=== PATIENT | female | born 1970 | race Caucasian/White ===

== ENCOUNTER 2017-03-26 14:04 | Emergency (ER) | payer SELFPAY ==
--- NOTE | 2017-03-26 15:49 | Emergency Department Report ---
Chief Complaint: Vaginal Bleeding Stated Complaint: MENSTRUAL FOR 3 WEEKS Time Seen by Provider: 03/26/17 15:45 - HPI History of Present Illness: PT c/o vaginal bleeding x 3 weeks PT reports having headache today - ROS Review of Systems: - n/v - lightheadedness - dizziness - Exam Vital Signs: Vital Signs 03/26/17 15:35 Temperature 98.5 F Pulse Rate 96 H Respiratory 18 Rate Blood Pressure 190/101 O2 Sat by Pulse 100 Oximetry Physical Exam: PT looks well, non toxic gcs 15 MSE screening note: Focused history and physical exam performed. Due to findings the following was ordered: labs ED Disposition for MSE Condition: Stable Referrals: PRIMARY CARE, [Primary Care Provider] - 3-5 Days
[2017-03-26 16:22] LABS: Basophils % (Auto) 0.7 % (0.0-1.8); Eosinophils % (Auto) 1.8 % (0.0-4.3); Hemoglobin 8.8 gm/dl (10.1-14.3); Mean Corpuscular HGB Conc 31 % (30-34); Mean Corpuscular Volume 78 fl (79-97); Platelet Count 539 K/mm3 (140-440); Red Blood Count 3.59 M/mm3 (3.65-5.03); White Blood Count 10.8 K/mm3 (4.5-11.0)
[2017-03-26 16:27] LABS: Mean Corpuscular Hemoglobin 24 pg (28-32); Red Cell Distribution Width 22.1 % (13.2-15.2)
[2017-03-26 16:32] LABS: Partial Thromboplastin Time 31.4 Sec. (24.2-36.6)
[2017-03-26 16:37] LABS: Alanine Aminotransferase 18 units/L (7-56); Albumin/Globulin Ratio 1.2 %; Alkaline Phosphatase 60 units/L (35-129); Anion Gap 18 mmol/L; BUN/Creatinine Ratio 9; Blood Urea Nitrogen 6 mg/dL (7-17); Calcium 8.3 mg/dL (8.4-10.2); Carbon Dioxide 21 mmol/L (22-30); Chloride 104.8 mmol/L (98-107); Glucose 88 mg/dL (65-100); Potassium 3.7 mmol/L (3.6-5.0); Sodium 140 mmol/L (137-145); Total Protein 7.3 g/dL (6.3-8.2)
--- NOTE | 2017-03-27 05:38 | Ultrasound Report ---
FINAL REPORT PROCEDURE: US TRANSVAGINAL TECHNIQUE: Real-time transvaginal sonography in multiple planes of the pelvis was performed with image documentation. This examination was performed without Doppler. Vascular abnormalities, including ovarian torsion, will not be detectable without Doppler evaluation. CPT 68473 HISTORY: vag bleeding x 3 weeks COMPARISON: No prior studies are available for comparison. FINDINGS: UTERUS Size: 12.9 x 7.8 x 8.6 cm. Endometrial thickness: 7.3 mm. Orientation: anteverted. Cervix: Normal. Fibroids/masses: There are 3 discrete uterine mass is suggesting fibroids. There is an intramural fibroid on the right measuring 5.3 centimeters. There is an intramural fibroid on the left measuring 4.5 centimeters. There is a submucosal fibroid in the lower uterine segment measuring 3.4 centimeters.. RIGHT Ovary: 4.9 x 3.3 x 4.5 cm. Appearance: There is a 4.3 centimeter cyst.. LEFT Ovary: 3.1 x 1.8 x 1.7 cm. Appearance: Normal. Pelvic fluid: None. Other: None. IMPRESSION: Uterine fibroids as described. There is no endometrial fluid. There is a 4.3 centimeters cyst in the right ovary. There is no free pelvic fluid.
--- NOTE | 2017-03-27 07:09 | Emergency Department Report ---
ED Female HPI - General Chief complaint: Vaginal Bleeding Stated complaint: MENSTRUAL FOR 3 WEEKS Time Seen by Provider: 03/26/17 15:45 Source: patient Mode of arrival: Ambulatory Limitations: No Limitations - History of Present Illness Initial comments: This is a 46-year-old female who was previously unknown to this provider. She does not have a local [facility] doctor. She presents to the ER with a complaint of vaginal bleeding for 1 month. It is intermittent. It does not have any exacerbating or relieving factors. Denies irritative and obstructive urinary symptoms. Having mild lower abdominal pain, not significant. MD Complaint: vaginal bleeding -: Gradual Location: suprapubic Severity: mild Quality: cramping Consistency: intermittent Improves with: none Worsens with: none Are you Now?: No Associated Symptoms: vaginal bleeding - Related Data Sexually active: Yes Home Medications Medication Instructions Recorded Confirmed Last Taken Iron 100 Plus Tablet 1 tab PO DAILY 03/26/17 03/26/17 Unknown Previous Rx's Medication Instructions Recorded Last Taken Type Ferrous Sulfate [Feosol 325 MG tab] 325 mg PO TID #90 tablet 03/27/17 Unknown Rx Allergies Allergy/AdvReac Type Severity Reaction Status Date / Time No Known Allergies Allergy Unverified 03/26/17 15:34 ED Review of Systems ROS: Stated complaint: MENSTRUAL FOR 3 WEEKS Other details as noted in HPI Constitutional: denies: fever Eyes: denies: eye discharge ENT: denies: epistaxis Respiratory: denies: cough Cardiovascular: denies: chest pain Gastrointestinal: denies: vomiting Genitourinary: abnormal menses Musculoskeletal: denies: back pain Skin: denies: lesions Neurological: denies: weakness ED Past Medical Hx - Past Medical History Previous Medical History?: Yes Additional medical history: anemia, Uterine fibroids - Surgical History Past Surgical History?: Yes Additional Surgical History: Removal of fibroids from uterus - Social History Smoking Status: Never Smoker Substance Use Type: Prescribed, Other - Medications Home Medications: Home Medications Medication Instructions Recorded Confirmed Last Taken Type Iron 100 Plus Tablet 1 tab PO DAILY 03/26/17 03/26/17 Unknown History Ferrous Sulfate [Feosol 325 MG tab] 325 mg PO TID #90 tablet 03/27/17 Unknown Rx ED Physical Exam - General Limitations: No Limitations General appearance: alert, in no apparent distress - Head Head exam: Present: atraumatic, normocephalic - Eye Eye exam: Present: normal appearance, EOMI. Absent: nystagmus - ENT ENT exam: Present: normal exam, normal orophraynx, mucous membranes moist, normal external ear exam - Neck Neck exam: Present: normal inspection, full ROM. Absent: tenderness, meningismus - Respiratory Respiratory exam: Present: normal lung sounds bilaterally. Absent: respiratory distress, wheezes, rales, rhonchi, chest wall tenderness - Cardiovascular Cardiovascular Exam: Present: regular rate, normal rhythm, normal heart sounds. Absent: bradycardia, tachycardia, irregular rhythm, systolic murmur, diastolic murmur, rubs, gallop - GI/Abdominal GI/Abdominal exam: Present: soft, normal bowel sounds. Absent: distended, tenderness, guarding, rebound, rigid, pulsatile mass - External exam: Present: normal external exam Speculum exam: Present: normal speculum exam, vaginal bleeding Bi-manual exam: Present: normal bi-manual exam, other (escorted by nurse Saleem Gonzales). Absent: cervical motion tendernes, adnexal tenderness, adnexal mass - Extremities Exam Extremities exam: Present: normal inspection, full ROM, normal capillary refill. Absent: tenderness, pedal edema, joint swelling, calf tenderness - Back Exam Back exam: Present: normal inspection, full ROM. Absent: tenderness, CVA tenderness (R), CVA tenderness (L), muscle spasm, paraspinal tenderness, vertebral tenderness - Neurological Exam Neurological exam: Present: alert, oriented X3, normal gait, other (Extraocular movements intact. Tongue midline. No facial droop. Facial sensation intact to light touch in the V1, V2, V3 distribution bilaterally. 5 and 5 strength in 4 extremities.. Sensation is intact to light touch in 4 extremities.). Absent : motor sensory deficit - Psychiatric Psychiatric exam: Present: normal affect, normal mood - Skin Skin exam: Present: warm, dry, intact, normal color. Absent: rash ED Course Vital Signs 03/26/17 03/26/17 03/27/17 15:35 21:12 06:33 Temperature 98.5 F 98.4 F Pulse Rate 96 H 82 90 Respiratory 18 18 17 Rate Blood Pressure 190/101 Blood Pressure 193/79 168/88 [Left] O2 Sat by Pulse 100 100 100 Oximetry 03/27/17 07:10 Temperature 98.1 F Pulse Rate 85 Respiratory 16 Rate Blood Pressure Blood Pressure 149/50 [Left] O2 Sat by Pulse 100 Oximetry ED Medical Decision Making - Lab Data Result diagrams: 03/26/17 15:55 03/26/17 15:55 Vital Signs 03/26/17 03/26/17 03/27/17 15:35 21:12 06:33 Temperature 98.5 F 98.4 F Pulse Rate 96 H 82 90 Respiratory 18 18 17 Rate Blood Pressure 190/101 Blood Pressure 193/79 168/88 [Left] O2 Sat by Pulse 100 100 100 Oximetry Lab Results 03/26/17 03/26/17 03/26/17 Range/Units 15:55 15:55 15:55 WBC 10.8 (4.5-11.0) K/mm3 RBC 3.59 L (3.65-5.03) M/mm3 Hgb 8.8 L (10.1-14.3) gm/dl Hct 28.0 L (30.3-42.9) % MCV 78 L (79-97) fl MCH 24 L (28-32) pg MCHC 31 (30-34) % RDW 22.1 H (13.2-15.2) % Plt Count 539 H (140-440) K/mm3 Lymph % (Auto) 24.9 (13.4-35.0) % [place] % (Auto) 5.7 (0.0-7.3) % Eos % (Auto) 1.8 (0.0-4.3) % Baso % (Auto) 0.7 (0.0-1.8) % Lymph # 2.7 (1.2-5.4) K/mm3 [place] # 0.6 (0.0-0.8) K/mm3 Eos # 0.2 (0.0-0.4) K/mm3 Baso # 0.1 (0.0-0.1) K/mm3 Seg Neutrophils % 66.9 (40.0-70.0) % Seg Neutrophils # 7.2 (1.8-7.7) K/mm3 PT (12.2-14.9) Sec. INR (0.87-1.13) APTT (24.2-36.6) Sec. Sodium 140 (137-145) mmol/L Potassium 3.7 (3.6-5.0) mmol/L Chloride 104.8 (98-107) mmol/L Carbon Dioxide 21 L (22-30) mmol/L Anion Gap 18 mmol/L BUN 6 L (7-17) mg/dL Creatinine 0.7 (0.7-1.2) mg/dL Estimated GFR > 60 ml/min BUN/Creatinine Ratio 9 % Glucose 88 (65-100) mg/dL Calcium 8.3 L (8.4-10.2) mg/dL Total Bilirubin 0.20 (0.1-1.2) mg/dL AST 18 (5-40) units/L ALT 18 (7-56) units/L Alkaline Phosphatase 60 (35-129) units/L Total Protein 7.3 (6.3-8.2) g/dL Albumin 4.0 (3.9-5) g/dL Albumin/Globulin Ratio 1.2 % HCG, Qual Negative (Negative) Urine Color (Yellow) Urine Turbidity (Clear) Urine pH (5.0-7.0) Ur Specific [place] (1.003-1.030) Urine Protein (Negative) mg/dL Urine Glucose (UA) (Negative) mg/dL Urine Ketones (Negative) mg/dL Urine Blood (Negative) Urine Nitrite (Negative) Urine Bilirubin (Negative) Urine Urobilinogen (<2.0) mg/dL Ur Leukocyte Esterase (Negative) Urine WBC (Auto) (0.0-6.0) /HPF Urine RBC (Auto) (0.0-6.0) /HPF U Epithel Cells (Auto) (0-13.0) /HPF Calcium Oxalate Crystal Urine Mucus /HPF Blood Type Antibody Screen JERMAIN Antibody Screen 03/26/17 03/26/17 03/27/17 Range/Units 15:55 15:55 06:28 WBC (4.5-11.0) K/mm3 RBC (3.65-5.03) M/mm3 Hgb (10.1-14.3) gm/dl Hct (30.3-42.9) % MCV (79-97) fl MCH (28-32) pg MCHC (30-34) % RDW (13.2-15.2) % Plt Count (140-440) K/mm3 Lymph % (Auto) (13.4-35.0) % [place] % (Auto) (0.0-7.3) % Eos % (Auto) (0.0-4.3) % Baso % (Auto) (0.0-1.8) % Lymph # (1.2-5.4) K/mm3 [place] # (0.0-0.8) K/mm3 Eos # (0.0-0.4) K/mm3 Baso # (0.0-0.1) K/mm3 Seg Neutrophils % (40.0-70.0) % Seg Neutrophils # (1.8-7.7) K/mm3 PT 13.7 (12.2-14.9) Sec. INR 1.00 (0.87-1.13) APTT 31.4 (24.2-36.6) Sec. Sodium (137-145) mmol/L Potassium (3.6-5.0) mmol/L Chloride (98-107) mmol/L Carbon Dioxide (22-30) mmol/L Anion Gap mmol/L BUN (7-17) mg/dL Creatinine (0.7-1.2) mg/dL Estimated GFR ml/min BUN/Creatinine Ratio % Glucose (65-100) mg/dL Calcium (8.4-10.2) mg/dL Total Bilirubin (0.1-1.2) mg/dL AST (5-40) units/L ALT (7-56) units/L Alkaline Phosphatase (35-129) units/L Total Protein (6.3-8.2) g/dL Albumin (3.9-5) g/dL Albumin/Globulin Ratio % HCG, Qual (Negative) Urine Color Yellow (Yellow) Urine Turbidity Clear (Clear) Urine pH 6.0 (5.0-7.0) Ur Specific [place] 1.014 (1.003-1.030) Urine Protein <15 mg/dl (Negative) mg/dL Urine Glucose (UA) Neg (Negative) mg/dL Urine Ketones Neg (Negative) mg/dL Urine Blood Lg (Negative) Urine Nitrite Neg (Negative) Urine Bilirubin Neg (Negative) Urine Urobilinogen < 2.0 (<2.0) mg/dL Ur Leukocyte Esterase Neg (Negative) Urine WBC (Auto) 3.0 (0.0-6.0) /HPF Urine RBC (Auto) 38.0 (0.0-6.0) /HPF U Epithel Cells (Auto) 1.0 (0-13.0) /HPF Calcium Oxalate Crystal 1+ Urine Mucus Few /HPF Blood Type B POSITIVE Antibody Screen TNR JERMAIN Antibody Screen Negative - Radiology Data Radiology results: report reviewed, image reviewed Transvaginal pelvic ultrasound demonstrates uterine fibroids. Otherwise, no acute disease. - Medical Decision Making Differential diagnosis: Fibroids, dysfunctional uterine bleeding, metabolic cause, asymptomatic chronic microcytic anemia Assessment and plan: 46-year-old female with 1 month of vaginal bleeding. She is afebrile, with reassuring vital signs, with the exception of hypertension. She is not dizzy or lightheaded, is hemodynamically stable, and has a benign physical and gynecologic examination. The patient will be started on iron supplementation, she is counseled that this medication may change the color of bowel movements to black. She is instructed to follow up with outpatient gynecology. Return precautions are reviewed. Critical care attestation.: If time is entered above; I have spent that time in minutes in the direct care of this critically ill patient, excluding procedure time. ED Disposition Clinical Impression: Fibroids Disposition: [id number] TO HOME OR SELFCARE Is pt being admited?: No Does the pt Need Aspirin: No Condition: Good Instructions: Dysfunctional Uterine Bleeding (ED) Additional Instructions: Take the iron supplementation as directed. Follow up with any of the listed gynecology specialist within the next 3 weeks. Make certain to take the iron supplementation as directed, and eat plenty of fruits, fibers, vegetables, as this medication can be constipating. Be aware that this medication may also change the color of bowel movements to black. Return to the ER right away with fevers, chills, confusion, chest pain, shortness of breath, lightheadedness, projectile vomiting, bleeding more than 2 pads soaked per hour, loss of consciousness. Prescriptions: Ferrous Sulfate [Feosol 325 MG tab] 325 mg PO TID #90 tablet Referrals: PRIMARY CAREMD [Primary Care Provider] - 3-5 Days [facility] [Provider Group] - 3-5 Days [facility] [Provider Group] - 3-5 Days [facility] [Provider Group] - 3-5 Days
[2017-03-27 07:15] LABS: Bilirubin,Urine NEG (Negative); Blood,Urine LG (Negative); Ketones,Urine NEG (Negative); Leukocyte Esterase,Urine NEG (Negative); Mucus,Urine FEW /HPF; Nitrite,Urine NEG (Negative); Protein,Urine <15 mg/dL mg/dL (Negative); Urobilinogen,Urine < 2.0 mg/dL (<2.0)
[2017-03-27 07:45] VITALS: BP 149/50
== END 2017-03-27 07:57 | disposition home or self-care (01) ==
LOC: ED 14:04
DX: D21.9 Benign neoplasm of connective and other soft tissue, unspecified (principal); D64.9 Anemia, unspecified
CPT/HCPCS: 36415; 76830; 76856; 80053; 81001; 84703; 85025; 85610; 85730; 86850; 86900; 86901; 99284